=== PATIENT | female | born 1960 | race Hispanic/Latino ===

== ENCOUNTER 2017-03-05 11:08 | Day surgery (SDC) | payer MEDICARE ==
[2017-02-26 16:24] VITALS: BMI 32.9
[2017-03-05] MEDS ORDERED: Propofol 10 mg/ml Inj (20 ML) ONE (12:17)
[2017-03-05] MEDS ORDERED: Lidocaine 2% Inj (20ml) ONE (12:36)
[2017-03-05] MEDS ORDERED: Sodium Chloride 0.9% 1,000 ML IV SCH (12:45)
[2017-03-05 13:25] VITALS: BP 108/68; PULSE 69; RESP 16; TEMP 98; O2SAT 95
== END 2017-03-05 13:52 | disposition home or self-care (01) ==
LOC: ENDO 11:08
PROVIDERS: ATTEND Internal Medicine Gastroenterology
DX: K57.30 Diverticulosis of large intestine without perforation or abscess without bleeding (principal); K64.8 Other hemorrhoids; K64.4 Residual hemorrhoidal skin tags; Z98.49 Cataract extraction status, unspecified eye; Q90.9 Down syndrome, unspecified
CPT/HCPCS: 45378; J2704; J7040 ×2

== ENCOUNTER 2018-09-01 11:21 | Emergency (ER) | payer MEDICARE, OTHER ==
[2018-09-01 11:22] VITALS: BMI 32.9
[2018-09-01 12:10] VITALS: PULSE 80; TEMP 98.2
[2018-09-01] MEDS ORDERED: Sodium Chloride 0.9% 1,000 ML IV SCH (12:30)
--- NOTE | 2018-09-01 14:14 | RAD ---
Date of service: 09/01/2018 HISTORY: syncopal episode COMPARISON: No prior. FINDINGS: LUNGS: The lungs are well inflated and clear. PLEURA: No pleural effusions or pneumothorax. CARDIOVASCULAR: The heart is normal in size. No aortic atherosclerotic calcifications present. OSSEOUS STRUCTURES: Within normal limits for the patient's age. VISUALIZED UPPER ABDOMEN: Normal. OTHER FINDINGS: None. IMPRESSION: No active pulmonary disease.
[2018-09-01 14:23] LABS: BASO # 0.01 K/mm3 (0.0-2.0); BASO % 0.1 % (0.0-3.0); HEMOGLOBIN 16.9 g/dL (12.0-16.0); LYMPH # 0.9 (1.2-3.4); LYMPH % 10.8 % (22.0-35.0); MEAN CELL VOLUME 106.8 fl (80.0-105.0); MEAN CORPUSCULAR HGB CONC 33.7 g/dl (31.0-37.0); MEAN PLATELET VOLUME 10.8 fl (7.0-11.0); MONO # 0.3 (0.1-0.6); MONO % 4.1 % (1.0-6.0); RBC 4.7 10^6/uL (3.5-6.1); RED CELL DISTRIBUTION WIDTH 13.6 % (11.5-14.5); URINE BILIRUBIN NEGATIVE (NEGATIVE); URINE BLOOD NEGATIVE (NEGATIVE); URINE GLUCOSE (UA) NEGATIVE (NEGATIVE); URINE LEUKOCYTE ESTERASE NEGATIVE Leu/uL (NEGATIVE); URINE PROTEIN NEGATIVE mg/dL (<30 mg/dL); URINE UROBILINOGEN 0.2 E.U./dL (<1 E.U./dL)
[2018-09-01 14:24] LABS: URINE APPEARANCE CLEAR (CLEAR); URINE COLOR YELLOW (YELLOW)
[2018-09-01 14:30] LABS: ALB/GLOB RATIO 0.8 (1.1-1.8); ALT/SGPT 26 U/L (7-56); AST/SGOT 47 U/L (14-36); BLOOD UREA NITROGEN 22 mg/dL (7-21); CALCIUM 8.8 mg/dL (8.4-10.5); GFR NON-AFRICAN AMERICAN 57; LIPASE 52 U/L (23-300)
--- NOTE | 2018-09-01 14:58 | ED PDOC ---
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 Patient reports one episode of non-bilious, non-bloody vomiting after having dinner last night. She reports she was walking with her animal care assistant earlier today when she felt lightheaded, but denies blurry vision. She also denies any LOC, fevers, chills, chest pain, shortness of breath, diarrhea, any more episodes of nausea or vomiting, or any other complaints. Time/Duration: 24 hours Symptom Onset: Gradual Symptom Course: Unchanged Activities at Onset: Light Context: Home Past Medical History - Provider Review Nursing Documentation Reviewed: Yes - Cardiac Hx Pacemaker: No - Neurological Hx Paralysis: No - Hematological/Oncological Hx Blood Transfusions: No Hx Blood Transfusion Reaction: No - Musculoskeletal/Rheumatological Hx Musculoskeletal Disorders: No - Psychiatric Hx Substance Use: No - Anesthesia Hx Anesthesia: Yes Hx Anesthesia Reactions: No Hx Malignant Hyperthermia: No Family/Social History - Physician Review Nursing Documentation Reviewed: Yes Family/Social History: Unknown Family HX Smoking Status: Never Smoked Hx Alcohol Use: No Hx Substance Use: No Allergies/Home Meds Allergies/Adverse Reactions: Allergies No Known Allergies Allergy (Verified 03/05/17 11:19) Home Medications: Home Meds Medication Instructions Recorded Confirmed Calcium Carb/Vitamin D3/Vit K1 1 tab PO BID 02/26/17 03/05/17 [Viactiv Soft Chew] Econazole 1% [Spectazole Cr] 1 appl DAILY 02/26/17 03/05/17 Multivit-Min/Iron/Folic/Vit K1 1 tab PO DAILY 02/26/17 03/05/17 [Centrum Chewable Tablet] Review of Systems - Physician Review All systems were reviewed & negative as marked: Yes - Review of Systems Constitutional: absent: Fevers Eyes: absent: Vision Changes Respiratory: absent: SOB, Cough Cardiovascular: absent: Chest Pain Gastrointestinal: Abdominal Pain, Vomiting. absent: Diarrhea, Nausea Musculoskeletal: absent: Back Pain, Neck Pain Skin: Rash Neurological: Other (+ Lightheadedness). absent: Headache Endocrine: absent: Diaphoresis Physical Exam Vital Signs Temp Pulse Resp BP Pulse Ox 09/01/18 11:22 98.1 F 77 18 132/62 97 Temperature: Afebrile Blood Pressure: Normal Pulse: Regular Respiratory Rate: Normal Appearance: Positive for: Well-Appearing, Non-Toxic, Comfortable Pain Distress: None Mental Status: Positive for: Alert and Oriented X 3 - Systems Exam Head: Present: Atraumatic, Normocephalic Pupils: Present: PERRL Extroacular Muscles: Present: EOMI Conjunctiva: Present: Normal Mouth: Present: Moist Mucous Membranes Neck: Present: Normal Range of Motion Respiratory/Chest: Present: Clear to Auscultation, Good Air Exchange. No: Respiratory Distress, Accessory Muscle Use Cardiovascular: Present: Regular Rate and Rhythm, Normal S1, S2. No: Murmurs Abdomen: No: Tenderness, Distention, Peritoneal Signs Back: Present: Normal Inspection Upper Extremity: Present: Normal Inspection. No: Cyanosis, Edema Lower Extremity: Present: Normal Inspection. No: Edema Neurological: Present: GCS=15, Speech Normal Skin: Present: Warm, Dry, Normal Color. 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 Differential Diagnosis included but are not limited to: Plan: -- EKG -- Urinalysis -- IV Fluids -- Labs -- Chest X-ray -- Reassess and disposition Prior Visits: Notes and results from previous visits were reviewed. Progress Notes: - Lab Interpretations Lab Results: Total Bilirubin 0.3 mg/dL (0.2-1.3) 09/01/18 14:10 AST 47 U/L (14-36) H 09/01/18 14:10 ALT 26 U/L (7-56) 09/01/18 14:10 Alkaline Phosphatase 66 U/L (38-126) 09/01/18 14:10 Total Protein 8.8 g/dL (5.8-8.3) H 09/01/18 14:10 Albumin 4.0 g/dL (3.0-4.8) 09/01/18 14:10 Globulin 4.8 gm/dL 09/01/18 14:10 Albumin/Globulin Ratio 0.8 (1.1-1.8) L 09/01/18 14:10 Lipase 52 U/L (23-300) 09/01/18 14:10 Urine Color Yellow (YELLOW) 09/01/18 14:10 Urine Appearance Clear (CLEAR) 09/01/18 14:10 Urine pH 6.0 (4.7-8.0) 09/01/18 14:10 Ur Specific [place] >= 1.030 (1.005-1.035) 09/01/18 14:10 Urine Protein Negative mg/dL (<30 mg/dL) 09/01/18 14:10 Urine Glucose (UA) Negative mg/dL (NEGATIVE) 09/01/18 14:10 Urine Ketones Negative mg/dL (NEGATIVE) 09/01/18 14:10 Urine Blood Negative (NEGATIVE) 09/01/18 14:10 Urine Nitrate Negative (NEGATIVE) 09/01/18 14:10 Urine Bilirubin Negative (NEGATIVE) 09/01/18 14:10 Urine Urobilinogen 0.2 E.U./dL (<1 E.U./dL) 09/01/18 14:10 Ur Leukocyte Esterase Negative Tc/uL (NEGATIVE) 09/01/18 14:10 - RAD Interpretation Narrative RAD Interpretations (Text): 09/01/18 18:36 Chest X-ray shows: No active pulmonary disease. Radiology Orders: 09/01/18 12:17 CHEST PORTABLE [RAD] Stat Component Inspector: Radiologist - EKG Interpretation EKG Interpretation (Text): 09/01/18 18:24 EKG reviewed, shows: NSR at 75 bpm, No ST elevations, No T wave inversions. Interpreted by ED Physician: Yes - Medication Orders Current Medication Orders: Sodium Chloride (Sodium Chloride 0.9%) 1,000 mls @ 100 mls/hr IV .Q10H SELIN Last Admin: 09/01/18 14:08 Dose: 100 mls/hr eMAR Start Stop Document 09/01/18 14:08 EQ (Rec: 09/01/18 14:09 EQ [facility] [id number]) Intravenous Solution Start Date 09/01/18 Start Time 14:09 - Scribe Statement The provider has reviewed the documentation as recorded by the Scribe Kayce Sweet All medical record entries made by the Scribe were at my direction and personally dictated by me. I have reviewed the chart and agree that the record accurately reflects my personal performance of the history, physical exam, medical decision making, and the department course for this patient. I have also personally directed, reviewed, and agree with the discharge instructions and disposition. Disposition/Present on Arrival - Present on Arrival Any Indicators Present on Arrival: No History of DVT/PE: No History of Uncontrolled Diabetes: No Urinary Catheter: No History of Decub. Ulcer: No History Surgical Site Infection Following: None - Disposition Have Diagnosis and Disposition been Completed?: No Diagnosis: Vasovagal episode Disposition: HOME/ ROUTINE Disposition Time: 14:57 Patient Plan: Discharge Condition: IMPROVED Discharge Instructions (ExitCare): Vasovagal Response (DC), Near Fainting (DC) Print Language: AZERBAIJ[place] Additional Instructions: All medical record entries made by the Scribe were at my direction and personally dictated by me. I have reviewed the chart and agree that the record accurately reflects my personal performance of the history, physical exam, medical decision making, and the department course for this patient. I have also personally directed, reviewed, and agree with the discharge instructions and disposition. PATIENT IS CLEARED TO RETURN TO WORK AND RESUME NORMAL ACTIVITIES Please follow up with your PCP in 1 week Referrals: Charles Doranets, DO [Family Provider] - Follow up with primary Forms: [facility] ([place]), WORK NOTE
[2018-09-01 14:59] VITALS: BP 102/62; RESP 19; O2SAT 98
--- NOTE | 2018-09-01 19:22 | CARD ---
APPROVED REPORT Date of service: 09/01/2018 EKG Measurement Heart [id number] <Conclusion> Normal sinus rhythm Possible Left atrial enlargement Possible Anterior infarct, age undetermined Abnormal ECG
== END 2018-09-01 16:33 | disposition home or self-care (01) ==
LOC: ED 11:21
DX: R55 Syncope and collapse (principal)
CPT/HCPCS: 71045; 80053; 81003; 83690; 85025; 93005; 99283; J7030